=== PATIENT | male | born 1970 | race Caucasian/White ===

== ENCOUNTER 2022-07-28 16:14 | Emergency (ER) | payer OTHER ==
[2022-07-28] MEDS ORDERED: Lidocaine 1% 20 ML MDV ONE (16:25)
[2022-07-28] MEDS ORDERED: Diphtheria,Pertussis(Acell),Tetanus Vaccine 0.5 ML Syringe IM ONE (16:38)
[2022-07-28] MEDS ORDERED: Lidocaine 1% 20 ML MDV INJECT ONE (16:55)
[2022-07-28] MEDS ORDERED: Bacitracin/Neomycin/Polymyxin B Oint 0.9 GM U/D Packet ONE (17:27)
[2022-07-28] MEDS ORDERED: Bacitracin/Neomycin/Polymyxin B Oint 0.9 GM U/D Packet TOP ONE (17:32)
[2022-07-28] MEDS ORDERED: Cephalexin 250 MG Cap PO SCH (22:00)
== END 2022-07-28 18:00 | disposition home or self-care (01) ==
LOC: KA.ED 16:14
DX: S61.211A Laceration without foreign body of left index finger without damage to nail, initial encounter (principal); Z23 Encounter for immunization; W26.8XXA Contact with other sharp object(s), not elsewhere classified, initial encounter
CPT/HCPCS: 12001; 90471; 90715; 99282; 99282-25; A9270-GY